=== PATIENT | female | born 1940 | race American Indian/Alaskan Native ===

== ENCOUNTER 2017-05-22 15:54 | Inpatient (IN) | payer MEDICARE ==
[2017-05-22] MEDS ORDERED: NITROSTAT SL PRN (17:33)
[2017-05-22] MEDS ORDERED: REGLAN IV ONE (17:33)
[2017-05-22] MEDS ORDERED: TYLENOL PO ONE (17:33)
--- NOTE | 2017-05-22 17:33 | Emergency Department Report ---
ED General Adult HPI - General Chief complaint: High BP Stated complaint: HIGH BLOOD PRESSURE Time Seen by Provider: 05/22/17 17:25 Source: patient, EMS (EMS written documentation is reviewed and appreciated), RN notes reviewed, old records reviewed Mode of arrival: Ambulatory Limitations: No Limitations - History of Present Illness Initial comments: This is a 76-year-old female. The patient is previously known to this provider. Past medical history includes subarachnoid hemorrhage, hypertension, diabetes The patient is sent to the ER by her local primary care doctor for evaluation of hypertension and chest pain. Patient complains of central chest pain which does not radiate to the back, arms and neck since 2:00 this afternoon. It is associated with cough, but no vomiting, diaphoresis or shortness of breath. There is no leg pain, there is no leg swelling, there are no DVT or pulmonary embolus risk factors. Patient also describes a headache which is frontal, bitemporal and present for a week. The headache is not sudden or thunderclap in nature, it did not respond intensity within the hour, there is no jaw claudication there is no change in vision, and there is no temporal pain. There is no neck pain, there is no neck stiffness. -: Gradual Location: head, chest Radiation: non-radiation Quality: aching Consistency: intermittent Improves with: none Worsens with: none Associated Symptoms: chest pain, cough, headaches. denies: confusion, diaphoresis, fever/chills, loss of appetite, malaise, nausea/vomiting, rash, seizure, shortness of breath, syncope, weakness - Related Data Home Medications Medication Instructions Recorded Confirmed Last Taken Folic Acid [Folvite] 1 mg PO QDAY 05/08/15 05/08/15 05/08/15 08:25 1mg Lisinopril [Zestril TAB] 10 mg PO QDAY 05/08/15 05/08/15 05/08/15 08:25 10mg Thiamine [Vitamin B-1] 100 mg PO QDAY 05/08/15 05/08/15 05/08/15 08:25 100mg levETIRAcetam [Keppra TAB] 1,000 mg PO BID 05/08/15 05/08/15 05/08/15 08:25 1000mg Allergies Allergy/AdvReac Type Severity Reaction Status Date / Time celecoxib [From Celebrex] Allergy welts Verified 05/08/15 20:34 Penicillins Allergy welts Verified 05/08/15 20:34 ED Review of Systems ROS: Stated complaint: HIGH BLOOD PRESSURE Other details as noted in HPI Comment: All other systems reviewed and negative ED Past Medical Hx - Past Medical History Previous Medical History?: Yes Hx Hypertension: Yes Hx Congestive Heart Failure: No Hx Liver Disease: No Hx Seizures: Yes Hx Kidney Stones: No Hx COPD: No - Surgical History Past Surgical History?: Yes Hx Pacemaker: No - Social History Smoking Status: Never Smoker - Medications Home Medications: Home Medications Medication Instructions Recorded Confirmed Last Taken Type Folic Acid [Folvite] 1 mg PO QDAY 05/08/15 05/08/15 05/08/15 08:25 History 1mg Lisinopril [Zestril TAB] 10 mg PO QDAY 05/08/15 05/08/15 05/08/15 08:25 History 10mg Thiamine [Vitamin B-1] 100 mg PO QDAY 05/08/15 05/08/15 05/08/15 08:25 History 100mg levETIRAcetam [Keppra TAB] 1,000 mg PO BID 05/08/15 05/08/15 05/08/15 08:25 History 1000mg ED Physical Exam - General Limitations: No Limitations General appearance: alert, in no apparent distress - Head Head exam: Present: atraumatic, normocephalic - Eye Eye exam: Present: normal appearance (there is no temporal tenderness), PERRL, EOMI, other (visual acuity intact to finger counting, color perception, reading at a close distance). Absent: nystagmus - ENT ENT exam: Present: normal exam, normal orophraynx, mucous membranes moist, normal external ear exam - Neck Neck exam: Present: normal inspection, full ROM - Respiratory Respiratory exam: Present: normal lung sounds bilaterally. Absent: respiratory distress, chest wall tenderness - Cardiovascular Cardiovascular Exam: Present: regular rate, normal rhythm, normal heart sounds. Absent: bradycardia, tachycardia, irregular rhythm, systolic murmur, diastolic murmur, rubs, gallop - GI/Abdominal GI/Abdominal exam: Present: soft, normal bowel sounds. Absent: distended, tenderness, guarding, rebound, rigid, pulsatile mass - Extremities Exam Extremities exam: Present: normal inspection, full ROM, normal capillary refill. Absent: joint swelling, calf tenderness - Back Exam Back exam: Present: normal inspection, full ROM. Absent: paraspinal tenderness , vertebral tenderness - Neurological Exam Neurological exam: Present: alert, oriented X3, CN II-XII intact, normal gait, other (Extraocular movements intact. Tongue midline. No facial droop. Facial sensation intact to light touch in the V1, V2, V3 distribution bilaterally. 5 and 5 strength in 4 extremities.. Sensation is intact to light touch in 4 extremities.). Absent: motor sensory deficit - Psychiatric Psychiatric exam: Present: anxious - Skin Skin exam: Present: warm, dry, intact, normal color. Absent: rash ED Course Vital Signs 05/22/17 05/22/17 05/22/17 17:08 19:23 20:35 Temperature 98.2 F Pulse Rate 61 72 Respiratory 16 16 Rate Blood Pressure 185/78 173/85 O2 Sat by Pulse 100 100 Oximetry - Reevaluation(s) Reevaluation #1: 05/22/17 22:13 CAT scan of the chest is negative for acute disease including dissection and/or pulmonary embolus. Noncontrast CT scan of the brain is negative. Dr. Mo accepts the patient to the medical service for chest pain and elevated blood pressure. ED Medical Decision Making - Lab Data Result diagrams: 05/22/17 17:40 05/22/17 17:40 Vital Signs 05/22/17 17:08 Temperature 98.2 F Pulse Rate 61 Respiratory 16 Rate Blood Pressure 185/78 O2 Sat by Pulse 100 Oximetry Labs 05/22/17 05/22/17 05/22/17 17:40 17:40 17:40 WBC 5.0 RBC 4.19 Hgb 12.1 Hct 37.2 MCV 89 MCH 29 MCHC 33 RDW 15.3 H Plt Count 299 Lymph % (Auto) 44.8 H [place] % (Auto) 9.8 H Eos % (Auto) 1.4 Baso % (Auto) 1.8 Lymph # 2.2 [place] # 0.5 Eos # 0.1 Baso # 0.1 Seg Neutrophils % 42.2 Seg Neutrophils # 2.1 PT 13.0 INR 0.94 APTT 25.9 Thrombin Time 17.0 Sodium 140 Potassium 4.1 Chloride 102.1 Carbon Dioxide 26 Anion Gap 16 BUN 13 Creatinine 0.9 Estimated GFR > 60 BUN/Creatinine Ratio 14 Glucose 93 Calcium 8.9 Total Bilirubin 0.20 AST 11 ALT 6 L Alkaline Phosphatase 59 Total Creatine Kinase 62 CK-MB (CK-2) 1.5 CK-MB (CK-2) Rel Index 2.4 Troponin T < 0.010 Total Protein 6.7 Albumin 3.8 L Albumin/Globulin Ratio 1.3 - EKG Data -: EKG Interpreted by Me - EKG Data 05/22/17 18:54 Compared to EKG from earlier today Sinus bradycardia, 59 bpm, left ventricular hypertrophy, not consistent with ST elevation myocardial infarction, appears unchanged compared to prior EKG from earlier on today. - Radiology Data Radiology results: pending, image reviewed interpreted by me: X-ray of the chest, interpreted by me: No acute disease - Medical Decision Making Differential diagnosis, including but not limited to: Migraine headache, tension headache, cluster headache, pneumonia, GERD, gastritis, acute coronary syndrome, anxiety, hypertension, elevated blood pressure, intracranial hemorrhage Assessment and plan: 76-year-old female with 2 complaints. Headache has been present for one week, history of edema consistent with subarachnoid hemorrhage or temporal arteritis. Has a GCS of 15, NIH score of 0 , no temporal tenderness, no jaw claudication, has a normal neurologic examination. Highly doubt Significant pathology, but will obtain a noncontrast CT scan of the brain. In terms of the patient's chest pain, it is atypical with no pulmonary embolus or DVT risk factors, patient low risk by well's criteria. However given her advanced age, nonspecific EKG, vascular risk factors, patient moderate risk by heart score, and also has had no recent acute coronary syndrome or stratification, and will benefit from admission for acs risk stratification . The patient has no pulse deficits, she has equal pulses in the bilateral upper and lower extremities, therefore think aortic disease is very unlikely. Critical care attestation.: If time is entered above; I have spent that time in minutes in the direct care of this critically ill patient, excluding procedure time. ED Disposition Clinical Impression: HTN (hypertension), Chest pain Disposition: OP ADMIT IP TO THIS HOSP Is pt being admited?: Yes Does the pt Need Aspirin: Yes Condition: Stable Instructions: Hypertension (ED), Chest Pain (ED) Referrals: PRIMARY CARE, [Primary Care Provider] - 3-5 Days
[2017-05-22 17:59] LABS: Basophils # (Auto) 0.1 K/mm3 (0.0-0.1); Basophils % (Auto) 1.8 % (0.0-1.8); Eosinophils # (Auto) 0.1 K/mm3 (0.0-0.4); Eosinophils % (Auto) 1.4 % (0.0-4.3); Hematocrit 37.2 % (30.3-42.9); Hemoglobin 12.1 gm/dl (10.1-14.3); Lymphocytes # (Auto) 2.2 K/mm3 (1.2-5.4); Lymphocytes % (Auto) 44.8 % (13.4-35.0); Mean Corpuscular HGB Conc 33 % (30-34); Mean Corpuscular Hemoglobin 29 pg (28-32); Mean Corpuscular Volume 89 fl (79-97); Monocytes # (Auto) 0.5 K/mm3 (0.0-0.8); Monocytes % (Auto) 9.8 % (0.0-7.3); Platelet Count 299 K/mm3 (140-440); Red Blood Count 4.19 M/mm3 (3.65-5.03); Red Cell Distribution Width 15.3 % (13.2-15.2)
[2017-05-22 18:10] LABS: INR 0.94 (0.87-1.13); Partial Thromboplastin Time 25.9 Sec. (24.2-36.6)
[2017-05-22 18:22] LABS: Creatine Kinase MB 1.5 ng/mL (0.0-4.0)
[2017-05-22 18:23] LABS: Alanine Aminotransferase 6 units/L (7-56); Albumin 3.8 g/dL (3.9-5); BUN/Creatinine Ratio 14; Blood Urea Nitrogen 13 mg/dL (7-17); Calcium 8.9 mg/dL (8.4-10.2); Hemolysis Index 18
[2017-05-22] MEDS ORDERED: APRESOLINE IV STA (18:30)
[2017-05-22] MEDS ORDERED: NACL 0.9% 250ML 250 ML IV ONE (18:37)
--- NOTE | 2017-05-22 19:06 | XRay Report ---
FINAL REPORT PROCEDURE: XRAY CHEST SINGLE VIEW TECHNIQUE: A portable AP chest radiograph was obtained at 05/22/2017 22:15 (T) . CPT 78943 HISTORY: Shortness of breath. COMPARISON: No prior studies are available for comparison. FINDINGS: Heart: Mild cardiomegaly. Mediastinum/Vessels: Aortic tortuosity. Lungs/Pleural space: Subtle left lower lobe opacity. Possible tiny left pleural effusion. Bony thorax: Mild osteopenia. Mild narrowing and small osteophytes of the bilateral shoulders. Mild degenerative change of the visualized spine. Life support devices: None. IMPRESSION: Mild cardiomegaly. Aortic tortuosity. Subtle left lower lobe opacity, likely atelectasis, cannot exclude pneumonia. Possible tiny left pleural effusion.
--- NOTE | 2017-05-22 20:42 | Cat Scan Report ---
FINAL REPORT EXAM: CT ANGIO CHEST HISTORY: cp htn TECHNIQUE:: CTA of chest with IV contrast. Coronal and sagittal and MIP reconstructed images provided. PRIORS: None currently available. FINDINGS: Mild scarring or discoid subsegmental at the lung bases. No pneumothorax. No distinct consolidation. No effusion. Mild scarring of both lung bases. Main pulmonary arteries are unremarkable. No pulmonary embolus No aortic aneurysm. No dissection. Mild aortic atherosclerotic disease. Major branch arteries are patent and intact. Moderate to marked cardiomegaly. Coronary artery disease. Small pericardial effusion. In the right paratracheal region on series 2:29 there is a well-defined low-attenuation lesion measuring 3.3 x 2.7 x 2.8 cm which may represent a cystic lesion. No internal complexity. No wall thickening. No abnormal enhancement. No internal septation. Superior vena cava is patent. No significant mass effect on the SVC identified. There is slight displacement of the azygos vein. Esophagus is suggests medial to this lesion on series 2:32. Direct connection is not evident. Diverticulum is not excluded. Remainder of the soft is unremarkable. Images of the thyroid are unremarkable. Axillary regions are unremarkable. No mediastinal adenopathy. No hilar adenopathy. No hilar mass. No suspicious osseous lesions on this limited examination of the skeleton. Metastatic disease better evaluated with bone scan. Degenerative changes are present in the spine. IMPRESSION: Cardiomegaly. Small pericardial effusion. Well-defined low-attenuation lesion in the right paratracheal region. Attenuation suggests pericardial cyst, mediastinal cyst, lymphocele, or possible esophageal diverticulum.
[2017-05-22 22:39] LABS: Bacteria,Urine 1+ /HPF (Negative); Bilirubin,Urine NEG (Negative); Blood,Urine NEG (Negative); Color,Urine Yellow (Yellow); Mucus,Urine FEW /HPF; Protein,Urine <15 mg/dL mg/dL (Negative); Urobilinogen,Urine < 2.0 mg/dL (<2.0)
[2017-05-22] MEDS ORDERED: TYLENOL PO PRN (23:19)
[2017-05-22] MEDS ORDERED: SODIUM CHLORIDE FLUSH SYRINGE 10 ML IV PRN (23:19)
[2017-05-22] MEDS ORDERED: ZOFRAN IV PRN (23:19)
[2017-05-22] MEDS ORDERED: APRESOLINE IV PRN (23:19)
--- NOTE | 2017-05-22 23:22 | History and Physical Report ---
History of Present Illness Date of examination: 05/22/17 History of present illness: 76-year-old woman with hypertension, diabetes, history of subarachnoid hemorrhage, seizure comes emergency room with complaints of chest pain located in the epigastric area which she describes as, dull pain, intermittent every 10 minutes, no radiation intensity 5/10, can't identify exacerbating or relieving factors. Denies shortness of breath, nausea vomiting, diaphoresis or palpitation. Patient stated that she took her blood pressure was very elevated at her primary care physician's office who sent her to the emergency room for evaluation Review Of Systems: Constitutional: no weight loss Ears, eyes, nose, mouth and throat: no nasal congestion, no nasal discharge, no sinus pressure, blurry vision, diplopia Neck: No neck pain or rigidity. Cardiovascular: no orthopnea, palpitations Respiratory: NO cough Gastrointestinal: no abdominal pain, hematochezia Genitourinary : no dysuria, frequency , hematuria Musculoskeletal: no muscle ache Integumentary: no rash, no pruritis Neurological: no parathesias, focal weakness Endocrine: no cold or heat intolerance, no polyuria or polydipsia Hematologic/Lymphatic: no easy bruising, no easy bleeding, no gland swelling Allergic/Immunologic: no urticaria, no angioedema. PAST MEDICAL HISTORY: None PAST SURGICAL HISTORY: None SOCIAL HISTORY: Denies alcohol, tobacco, drugs FAMILY HISTORY: Hypertension Medications and Allergies Allergies Allergy/AdvReac Type Severity Reaction Status Date / Time celecoxib [From Celebrex] Allergy welts Verified 05/08/15 20:34 Penicillins Allergy welts Verified 05/08/15 20:34 Home Medications Medication Instructions Recorded Confirmed Last Taken Type Lisinopril [Zestril TAB] 20 mg PO QDAY 05/08/15 05/22/17 05/22/17 11:00 History Aspirin [Aspirin EC] 81 mg PO DAILY 05/22/17 05/22/17 Unknown History Active Meds: Active Medications Hydralazine HCl (Apresoline) 5 mg IV Q6HR PRN PRN Reason: Hypertension Nitroglycerin (Nitrostat) 0.4 mg SL .Q5MIN PRN PRN Reason: Chest Pain Exam - Physical Exam Narrative exam: Gen. appearance: Patient lying in bed, no apparent distress HEENT: Normocephalic, atraumatic, pupils equally round and reactive to light, extraocular movement intact, and no sclericterus,. No JVD or thyromegaly or nodule,neck supple, no carotid bruit ,mucous membranes moist, no exudate or erythema Heart: S1, S2, regular rate and rhythm Lungs: Clear to auscultation bilaterally, breathing comfortable Abdomen: Positive bowel sounds, nontender, nondistended, no organomegaly Extremity: No edema, cyanosis, clubbing Skin: No rash, nodules, warm, dry Neuro: Oriented 3, cranial nerves II-12 intact, speech is fluent, motor and sensory intact - Constitutional Vitals: Temp Pulse Resp BP Pulse Ox 98.2 F 72 16 173/85 100 05/22/17 17:08 05/22/17 20:35 05/22/17 19:23 05/22/17 20:35 05/22/17 19:23 Results - Labs CBC & Chem 7: 05/22/17 17:40 05/22/17 17:40 Labs: Abnormal lab results 05/22/17 05/22/17 05/22/17 Range/Units 17:40 17:40 22:14 RDW 15.3 H (13.2-15.2) % Lymph % (Auto) 44.8 H (13.4-35.0) % [place] % (Auto) 9.8 H (0.0-7.3) % ALT 6 L (7-56) units/L Albumin 3.8 L (3.9-5) g/dL Ur Specific [place] 1.050 H (1.003-1.030) Urine WBC (Auto) 12.0 H (0.0-6.0) /HPF - Imaging and Cardiology EKG: image reviewed Chest x-ray: image reviewed CT scan - chest: report reviewed Assessment and Plan Hypertensive urgency Chest pain Diabetes type 2 History of subarachnoid hemorrhage Seizure Plan Admit to medicine Start IV hydralazine, check cardiac enzymes, stress test Continue Procrit outpatient medications DVT prophylaxis
[2017-05-23 00:37] LABS: Creatine Kinase MB 1.4 ng/mL (0.0-4.0)
[2017-05-23] MEDS ORDERED: BABY ASPIRIN ONE (01:04)
[2017-05-23] MEDS: BABY ASPIRIN PO ONE ×2 (01:10→01:31)
[2017-05-23 06:21] LABS: Basophils # (Auto) 0.1 K/mm3 (0.0-0.1); Basophils % (Auto) 1.2 % (0.0-1.8); Eosinophils # (Auto) 0.1 K/mm3 (0.0-0.4); Eosinophils % (Auto) 2.1 % (0.0-4.3); Hematocrit 34.6 % (30.3-42.9); Lymphocytes # (Auto) 1.8 K/mm3 (1.2-5.4); Lymphocytes % (Auto) 39.9 % (13.4-35.0); Mean Corpuscular HGB Conc 32 % (30-34); Mean Corpuscular Hemoglobin 29 pg (28-32); Mean Corpuscular Volume 90 fl (79-97); Monocytes # (Auto) 0.4 K/mm3 (0.0-0.8); Monocytes % (Auto) 9.4 % (0.0-7.3); Platelet Count 311 K/mm3 (140-440); Red Blood Count 3.86 M/mm3 (3.65-5.03); Red Cell Distribution Width 14.8 % (13.2-15.2)
[2017-05-23 06:47] LABS: BUN/Creatinine Ratio 17; Blood Urea Nitrogen 12 mg/dL (7-17); Calcium 8.5 mg/dL (8.4-10.2); Creatine Kinase MB 1.3 ng/mL (0.0-4.0); Hemolysis Index 3
--- NOTE | 2017-05-23 07:26 | Cat Scan Report ---
FINAL REPORT PROCEDURE: CT HEAD WO CONTRAST TECHNIQUE: Computerized tomography of the head was performed without contrast material. HISTORY: headache COMPARISON: No prior studies are available for comparison. FINDINGS: There is a chronic appearing right basal ganglia lacunar infarct. No CT evidence of intracranial mass, hemorrhage, acute territorial infarction, or hydrocephalus. There is bilateral white matter low attenuation, compatible with chronic microvascular ischemic change. Calvarium is intact. Visualized paranasal sinuses and mastoids are aerated. IMPRESSION: No CT evidence of acute intracranial abnormality Chronic ischemic changes.
[2017-05-23] MEDS ORDERED: LEXISCAN IV ONE ×2 (08:54→08:56)
--- NOTE | 2017-05-23 09:05 | Progress Note ---
<ALMA CROWLEY - Last Filed: 05/23/17 14:27> Assessment and Plan Assessment and plan: 76-year-old woman admitted to hospitalist service with complaints of chest pain located in the epigastric area. Chest pain Cardiac enzymes have been negative, Stress test negative for ischemia Hypertensive urgency Urgency now resolved, continue current antihypertensives Hypertension Continue antihypertensives Lesion in the right paratracheal region Pulmonology consulted Diabetes type 2 ADA diet, Accu-Cheks before meals and at bedtime, sliding scale insulin, A1c History of subarachnoid hemorrhage History of Seizure Not currently on any outpatient antiseizure medication DVT prophylaxis SCDs History Interval history: Patient seen and examined. No new issues overnight. She denied chest pain, shortness of breath, nausea vomiting at this time. Labs and nursing notes reviewed. Hospitalist Physical - Constitutional Vitals: Temp Pulse Resp BP Pulse Ox 98.6 F 62 17 165/67 99 05/23/17 07:25 05/23/17 07:25 05/23/17 07:25 05/23/17 07:25 05/23/17 07:25 General appearance: Present: no acute distress, well-nourished - EENT Eyes: Present: PERRL, EOM intact ENT: hearing intact, clear oral mucosa - Neck Neck: Present: supple, normal ROM - Respiratory Respiratory effort: normal Respiratory: bilateral: CTA - Cardiovascular Rhythm: regular Heart Sounds: Present: S1 & S2 - Extremities Extremities: no ischemia, No edema - Abdominal General gastrointestinal: soft, non-tender, non-distended - Integumentary Integumentary: Present: clear, warm, dry - Psychiatric Psychiatric: appropriate mood/affect, intact judgment & insight, cooperative - Neurologic Neurologic: CNII-XII intact, moves all extremities - Allied Health Allied health notes reviewed: nursing Results - Labs CBC & Chem 7: 05/23/17 04:23 05/23/17 04:23 Labs: Laboratory Last Values WBC 4.6 K/mm3 (4.5-11.0) 05/23/17 04:23 RBC 3.86 M/mm3 (3.65-5.03) 05/23/17 04:23 Hgb 11.0 gm/dl (10.1-14.3) 05/23/17 04:23 Hct 34.6 % (30.3-42.9) 05/23/17 04:23 MCV 90 fl (79-97) 05/23/17 04:23 MCH 29 pg (28-32) 05/23/17 04:23 MCHC 32 % (30-34) 05/23/17 04:23 RDW 14.8 % (13.2-15.2) 05/23/17 04:23 Plt Count 311 K/mm3 (140-440) 05/23/17 04:23 Lymph % (Auto) 39.9 % (13.4-35.0) H 05/23/17 04:23 [place] % (Auto) 9.4 % (0.0-7.3) H 05/23/17 04:23 Eos % (Auto) 2.1 % (0.0-4.3) 05/23/17 04:23 Baso % (Auto) 1.2 % (0.0-1.8) 05/23/17 04:23 Lymph # 1.8 K/mm3 (1.2-5.4) 05/23/17 04:23 [place] # 0.4 K/mm3 (0.0-0.8) 05/23/17 04:23 Eos # 0.1 K/mm3 (0.0-0.4) 05/23/17 04:23 Baso # 0.1 K/mm3 (0.0-0.1) 05/23/17 04:23 Seg Neutrophils % 47.4 % (40.0-70.0) 05/23/17 04:23 Seg Neutrophils # 2.2 K/mm3 (1.8-7.7) 05/23/17 04:23 PT 13.0 Sec. (12.2-14.9) 05/22/17 17:40 INR 0.94 (0.87-1.13) 05/22/17 17:40 APTT 25.9 Sec. (24.2-36.6) 05/22/17 17:40 Thrombin Time 17.0 Sec. (15.1-19.6) 05/22/17 17:40 Sodium 141 mmol/L (137-145) 05/23/17 04:23 Potassium 3.6 mmol/L (3.6-5.0) 05/23/17 04:23 Chloride 102.5 mmol/L (98-107) 05/23/17 04:23 Carbon Dioxide 25 mmol/L (22-30) 05/23/17 04:23 Anion Gap 17 mmol/L 05/23/17 04:23 BUN 12 mg/dL (7-17) 05/23/17 04:23 Creatinine 0.7 mg/dL (0.7-1.2) 05/23/17 04:23 Estimated GFR > 60 ml/min 05/23/17 04:23 BUN/Creatinine Ratio 17 % 05/23/17 04:23 Glucose 79 mg/dL (65-100) 05/23/17 04:23 Calcium 8.5 mg/dL (8.4-10.2) 05/23/17 04:23 Total Bilirubin 0.20 mg/dL (0.1-1.2) 05/22/17 17:40 AST 11 units/L (5-40) 05/22/17 17:40 ALT 6 units/L (7-56) L 05/22/17 17:40 Alkaline Phosphatase 59 units/L (35-129) 05/22/17 17:40 Total Creatine Kinase 52 units/L (30-135) 05/23/17 04:23 CK-MB (CK-2) 1.3 ng/mL (0.0-4.0) 05/23/17 04:23 CK-MB (CK-2) Rel Index 2.5 (0-4) 05/23/17 04:23 Troponin T < 0.010 ng/mL (0.00-0.029) 05/23/17 04:23 Total Protein 6.7 g/dL (6.3-8.2) 05/22/17 17:40 Albumin 3.8 g/dL (3.9-5) L 05/22/17 17:40 Albumin/Globulin Ratio 1.3 % 05/22/17 17:40 Urine Color Yellow (Yellow) 05/22/17 22:14 Urine Turbidity Clear (Clear) 05/22/17 22:14 Urine pH 6.0 (5.0-7.0) 05/22/17 22:14 Ur Specific [place] 1.050 (1.003-1.030) H 05/22/17 22:14 Urine Protein <15 mg/dl mg/dL (Negative) 05/22/17 22:14 Urine Glucose (UA) Neg mg/dL (Negative) 05/22/17 22:14 Urine Ketones Neg mg/dL (Negative) 05/22/17 22:14 Urine Blood Neg (Negative) 05/22/17 22:14 Urine Nitrite Neg (Negative) 05/22/17 22:14 Urine Bilirubin Neg (Negative) 05/22/17 22:14 Urine Urobilinogen < 2.0 mg/dL (<2.0) 05/22/17 22:14 Ur Leukocyte Esterase Mod (Negative) 05/22/17 22:14 Urine WBC (Auto) 12.0 /HPF (0.0-6.0) H 05/22/17 22:14 Urine RBC (Auto) 5.0 /HPF (0.0-6.0) 05/22/17 22:14 U Epithel Cells (Auto) 5.0 /HPF (0-13.0) 05/22/17 22:14 Urine Bacteria (Auto) 1+ /HPF (Negative) 05/22/17 22:14 Urine Mucus Few /HPF 05/22/17 22:14 <BAIRON OGDEN - Last Filed: 05/23/17 16:47> Assessment and Plan Assessment and plan: I saw and evaluated the patient. I agree with the findings and the plan of care as documented in the Nurse Practitioner's~note, with the following corrections and additions. Patient presents with chest pain, stress test negative. CT shows right paratracheal lesion. Pulmonology consulted. Hospitalist Physical - Constitutional Vitals: Temp Pulse Resp BP Pulse Ox 98.6 F 84 17 132/64 98 05/23/17 12:28 05/23/17 12:28 05/23/17 12:28 05/23/17 12:28 05/23/17 13:22 Results - Labs CBC & Chem 7: 05/23/17 04:23 05/23/17 04:23 Labs: Laboratory Last Values WBC 4.6 K/mm3 (4.5-11.0) 05/23/17 04:23 RBC 3.86 M/mm3 (3.65-5.03) 05/23/17 04:23 Hgb 11.0 gm/dl (10.1-14.3) 05/23/17 04:23 Hct 34.6 % (30.3-42.9) 05/23/17 04:23 MCV 90 fl (79-97) 05/23/17 04:23 MCH 29 pg (28-32) 05/23/17 04:23 MCHC 32 % (30-34) 05/23/17 04:23 RDW 14.8 % (13.2-15.2) 05/23/17 04:23 Plt Count 311 K/mm3 (140-440) 05/23/17 04:23 Lymph % (Auto) 39.9 % (13.4-35.0) H 05/23/17 04:23 [place] % (Auto) 9.4 % (0.0-7.3) H 05/23/17 04:23 Eos % (Auto) 2.1 % (0.0-4.3) 05/23/17 04:23 Baso % (Auto) 1.2 % (0.0-1.8) 05/23/17 04:23 Lymph # 1.8 K/mm3 (1.2-5.4) 05/23/17 04:23 [place] # 0.4 K/mm3 (0.0-0.8) 05/23/17 04:23 Eos # 0.1 K/mm3 (0.0-0.4) 05/23/17 04:23 Baso # 0.1 K/mm3 (0.0-0.1) 05/23/17 04:23 Seg Neutrophils % 47.4 % (40.0-70.0) 05/23/17 04:23 Seg Neutrophils # 2.2 K/mm3 (1.8-7.7) 05/23/17 04:23 PT 13.0 Sec. (12.2-14.9) 05/22/17 17:40 INR 0.94 (0.87-1.13) 05/22/17 17:40 APTT 25.9 Sec. (24.2-36.6) 05/22/17 17:40 Thrombin Time 17.0 Sec. (15.1-19.6) 05/22/17 17:40 Sodium 141 mmol/L (137-145) 05/23/17 04:23 Potassium 3.6 mmol/L (3.6-5.0) 05/23/17 04:23 Chloride 102.5 mmol/L (98-107) 05/23/17 04:23 Carbon Dioxide 25 mmol/L (22-30) 05/23/17 04:23 Anion Gap 17 mmol/L 05/23/17 04:23 BUN 12 mg/dL (7-17) 05/23/17 04:23 Creatinine 0.7 mg/dL (0.7-1.2) 05/23/17 04:23 Estimated GFR > 60 ml/min 05/23/17 04:23 BUN/Creatinine Ratio 17 % 05/23/17 04:23 Glucose 79 mg/dL (65-100) 05/23/17 04:23 Hemoglobin A1c 6.6 % (4-6) H 05/23/17 04:29 Calcium 8.5 mg/dL (8.4-10.2) 05/23/17 04:23 Total Bilirubin 0.20 mg/dL (0.1-1.2) 05/22/17 17:40 AST 11 units/L (5-40) 05/22/17 17:40 ALT 6 units/L (7-56) L 05/22/17 17:40 Alkaline Phosphatase 59 units/L (35-129) 05/22/17 17:40 Total Creatine Kinase 52 units/L (30-135) 05/23/17 04:23 CK-MB (CK-2) 1.3 ng/mL (0.0-4.0) 05/23/17 04:23 CK-MB (CK-2) Rel Index 2.5 (0-4) 05/23/17 04:23 Troponin T < 0.010 ng/mL (0.00-0.029) 05/23/17 04:23 Total Protein 6.7 g/dL (6.3-8.2) 05/22/17 17:40 Albumin 3.8 g/dL (3.9-5) L 05/22/17 17:40 Albumin/Globulin Ratio 1.3 % 05/22/17 17:40 Urine Color Yellow (Yellow) 05/22/17 22:14 Urine Turbidity Clear (Clear) 05/22/17 22:14 Urine pH 6.0 (5.0-7.0) 05/22/17 22:14 Ur Specific [place] 1.050 (1.003-1.030) H 05/22/17 22:14 Urine Protein <15 mg/dl mg/dL (Negative) 05/22/17 22:14 Urine Glucose (UA) Neg mg/dL (Negative) 05/22/17 22:14 Urine Ketones Neg mg/dL (Negative) 05/22/17 22:14 Urine Blood Neg (Negative) 05/22/17 22:14 Urine Nitrite Neg (Negative) 05/22/17 22:14 Urine Bilirubin Neg (Negative) 05/22/17 22:14 Urine Urobilinogen < 2.0 mg/dL (<2.0) 05/22/17 22:14 Ur Leukocyte Esterase Mod (Negative) 05/22/17 22:14 Urine WBC (Auto) 12.0 /HPF (0.0-6.0) H 05/22/17 22:14 Urine RBC (Auto) 5.0 /HPF (0.0-6.0) 05/22/17 22:14 U Epithel Cells (Auto) 5.0 /HPF (0-13.0) 05/22/17 22:14 Urine Bacteria (Auto) 1+ /HPF (Negative) 05/22/17 22:14 Urine Mucus Few /HPF 05/22/17 22:14
[2017-05-23] MEDS: SODIUM CHLORIDE FLUSH SYRINGE 10 ML IV SCH ×2 (11:44→22:30)
[2017-05-23] MEDS: HALFPRIN EC PO SCH (11:45)
[2017-05-23] MEDS: ZESTRIL PO SCH (11:45)
--- NOTE | 2017-05-23 14:30 | Treadmill Report ---
NUCLEAR CARDIAC IMAGING INDICATION FOR PROCEDURE: Chest pain. Informed consent was obtained. DESCRIPTION OF PROCEDURE: Vasodilator stress was achieved with administration of 0.4 mg of intravenous Lexiscan per protocol. Rest and stress nuclear cardiac imaging was performed following the intravenous administration of technetium 99m Myoview per protocol. Gated SPECT imaging demonstrates a post-stress left ventricular ejection fraction of 54% with normal wall motion. Myocardial perfusion imaging demonstrates no significant cavity change between stress and rest. The distribution of the isotope throughout the left ventricle is homogeneous and normal between stress and rest acquisition. Nuclear cardiac imaging demonstrates grossly normal post-stress left ventricular systolic function with no significant evidence for myocardial ischemia or necrosis. JOB# [id number] CAN/ROSARIO
[2017-05-23] MEDS ORDERED: LEVAQUIN 500MG/100ML 500 MG/100 ML BAG IV SCH (17:00)
--- NOTE | 2017-05-24 09:14 | Consultation ---
History of Present Illness Consult date: 05/24/17 Requesting physician: BIARON OGDEN Reason for consult: abnormal CXR/CT History of present illness: 76 y/o female, former smoker of 20+ years but quit 30 years ago admitted with hypertensive Urgency. Patient had chest pain in ED so CTA was done which was negative for PE. Unfortunately, a right paratracheal mass was found and pulmonary was consulted. Patient states that she has lost about 19lbs over the past year unintentionally. She denies any fevers, night sweats or hemoptysis. No dyspnea. She has never had cancer. She had one uncle with cancer but does not know the type. She still has her thyroid. Remainder of the review is negative. Past History Past Medical History: hypertension, other (subarrachnoid hemorrhage) Past Surgical History: Other Social history: no significant social history Family history: no significant family history Medications and Allergies Allergies Allergy/AdvReac Type Severity Reaction Status Date / Time celecoxib [From Celebrex] Allergy welts Verified 05/08/15 20:34 Penicillins Allergy welts Verified 05/08/15 20:34 Home Medications Medication Instructions Recorded Confirmed Last Taken Type Lisinopril [Zestril TAB] 20 mg PO QDAY 05/08/15 05/22/17 05/22/17 11:00 History Aspirin [Aspirin EC] 81 mg PO DAILY 05/22/17 05/22/17 Unknown History Active Meds: Active Medications Acetaminophen (Tylenol) 650 mg PO Q4H PRN PRN Reason: Pain MILD(1-3)/Fever >100.5/RANGEL Aspirin (Halfprin Ec) 81 mg PO DAILY COUNTS INCLUDE 234 BEDS AT THE [facility] Last Admin: 05/23/17 11:45 Dose: 81 mg Hydralazine HCl (Apresoline) 5 mg IV Q6H PRN PRN Reason: Hypertension Levofloxacin/Dextrose (Levaquin 500mg/100ml) 500 mg in 100 mls @ 100 mls/hr IV Q24H COUNTS INCLUDE 234 BEDS AT THE [facility]; Protocol Last Admin: 05/23/17 17:46 Dose: 100 mls/hr Lisinopril (Zestril) 20 mg PO QDAY COUNTS INCLUDE 234 BEDS AT THE [facility] Last Admin: 05/23/17 11:45 Dose: 20 mg Nitroglycerin (Nitrostat) 0.4 mg SL .Q5MIN PRN PRN Reason: Chest Pain Last Admin: 05/23/17 03:08 Dose: 0.4 mg Ondansetron HCl (Zofran) 4 mg IV Q8H PRN PRN Reason: Nausea And Vomiting Sodium Chloride (Sodium Chloride Flush Syringe 10 Ml) 10 ml IV BID JAVIER Last Admin: 05/23/17 22:30 Dose: 10 ml Sodium Chloride (Sodium Chloride Flush Syringe 10 Ml) 10 ml IV PRN PRN PRN Reason: LINE FLUSH Review of Systems All systems: negative Physical Examination Vital signs: Vital Signs Temp Pulse Resp BP Pulse Ox 98.2 F 61 16 185/78 100 05/22/17 17:08 05/22/17 17:08 05/22/17 17:08 05/22/17 17:08 05/22/17 17:08 General appearance: no acute distress, alert Eyes: non-icteric ENT: oropharynx moist Neck: supple, no lymphadenopathy Effort: normal Ascultation: Bilateral: clear Percussion: Bilateral: not dull Tactile fremitus: Bilateral: normal Cardiovascular: regular rate and rhythm Gastrointestinal: normoactive bowel sounds, soft Integumentary: normal Extremities: no cyanosis, no edema, pink and warm, pulses normal normal mental status, non-focal exam mood appropriate Results - Laboratory Findings CBC and BMP: 05/23/17 04:23 05/23/17 04:23 PT/INR, D-dimer PT 13.0 Sec. (12.2-14.9) 05/22/17 17:40 INR 0.94 (0.87-1.13) 05/22/17 17:40 Abnormal lab findings: Abnormal Labs 05/22/17 05/22/17 05/22/17 17:40 17:40 22:14 RDW 15.3 H Lymph % (Auto) 44.8 H [place] % (Auto) 9.8 H POC Glucose Hemoglobin A1c ALT 6 L Albumin 3.8 L Ur Specific [place] 1.050 H Urine WBC (Auto) 12.0 H 05/23/17 05/23/17 05/23/17 04:23 04:29 17:36 RDW Lymph % (Auto) 39.9 H [place] % (Auto) 9.4 H POC Glucose 148 H Hemoglobin A1c 6.6 H ALT Albumin Ur Specific [place] Urine WBC (Auto) - Diagnostic Findings CT scan - chest: image reviewed Assessment and Plan 76 y/o female with hypertensive urgency found to have right paratracheal lesion. Agree with radiology differential. Her age is the biggest risk factor for malignancy. No real B symptoms associated with potential malignancy. Long discussion at bedside and we have developed a plan. 1. Follow up with Dr. Nolasco as an outpatient, will arrange. 2. Please have patient sign release form to have all imaging of chest and neck faxed to our office or to this hospital for review 3. If lesion was not present 2 years ago on [facility] imaging or no imaging available, then need to consider PET scan vs going straight to biopsy 4. No objection to discharge from pulmonary standpoint today.
[2017-05-24] MEDS: ZESTRIL PO SCH (10:09)
[2017-05-24] MEDS: HALFPRIN EC PO SCH (10:09)
[2017-05-24] MEDS: SODIUM CHLORIDE FLUSH SYRINGE 10 ML IV SCH (10:09)
[2017-05-24 10:30] VITALS: BP 123/63
--- NOTE | 2017-05-24 12:02 | Discharge Summary ---
Providers - Providers Date of Admission: 05/22/17 23:19 Date of discharge: 05/24/17 Attending physician: BAIRON OGDEN 05/23/17 14:11 Consult to Physician [CONS] Routine Comment: Consulting Provider: HEDY NOLASCO Physician Instructions: Reason For Exam: lesion in the right paratracheal Primary care physician: BAIRON KIM Hospitalization Condition: Stable Pertinent studies: CTA chest reveal Cardiomegaly. Small pericardial effusion. Well-defined low-attenuation lesion in the right paratracheal region. Attenuation suggests pericardial cyst, mediastinal cyst, lymphocele, or possible esophageal diverticulum. Stress test revealed no evidence of ischemia Chest x-ray revealed Subtle left lower lobe opacity, likely atelectasis, cannot exclude pneumonia. Possible tiny left pleural effusion. Hospital course: 76-year-old woman admitted to hospitalist service with complaints of chest pain located in the epigastric area. Chest pain Cardiac enzymes have been negative, Stress test negative for ischemia, etiology likely GERD, Pepcid prescribed on dc Hypertensive urgency Urgency now resolved, continue Lisinopril Hypertension BP controlled on Lisinopril 20mg Lesion in the right paratracheal region Pulmonology consulted, patient will follow up as outpatient with Dr Nolasco within 2 weeks Diabetes type 2 ADA diet, Accu-Cheks before meals and at bedtime, A1c 6.6 patient to follow up with PCP for management, counselled on diet and lifestyle modification UTI Continue Levaquin History of subarachnoid hemorrhage History of Seizure Not currently on any outpatient antiseizure medication DVT prophylaxis SCDs Disposition: DC-01 TO HOME OR SELFCARE Time spent for discharge: 32 minutes Core Measure Documentation - Palliative Care Palliative Care/ Comfort Measures: Not Applicable - Core Measures Any of the following diagnoses?: none Exam - Constitutional Vitals: Temp Pulse Resp BP Pulse Ox 98.6 F 98 H 18 123/63 100 05/24/17 09:41 05/24/17 10:00 05/24/17 09:41 05/24/17 09:41 05/24/17 09:41 General appearance: Present: no acute distress, well-nourished - EENT Eyes: Present: PERRL ENT: hearing intact, clear oral mucosa - Neck Neck: Present: supple, normal ROM - Respiratory Respiratory effort: normal Respiratory: bilateral: CTA - Cardiovascular Heart Sounds: Present: S1 & S2. Absent: rub, click - Extremities Extremities: pulses symmetrical, No edema Peripheral Pulses: within normal limits - Abdominal General gastrointestinal: Present: soft, non-tender, non-distended, normal bowel sounds Female genitourinary: Present: normal - Integumentary Integumentary: Present: clear, warm, dry - Musculoskeletal Musculoskeletal: gait normal, strength equal bilaterally - Psychiatric Psychiatric: appropriate mood/affect, intact judgment & insight - Neurologic Neurologic: CNII-XII intact, moves all extremities Plan Activity: fall precautions Weight Bearing Status: Weight Bear as Tolerated Diet: low fat, low cholesterol, low salt Follow up with: PRIMARY CARE, [Referring] - 3-5 Days HEDY NOLASCO MD [Staff Physician] - 14 Days Forms: Discharge Signature Page Prescriptions: Famotidine [Pepcid] 20 mg PO BID #60 tablet Levofloxacin [Levaquin TAB] 500 mg PO Q24H #3 tablet Lisinopril [Zestril TAB] 20 mg PO QDAY #30 tablet
[2017-05-24] MEDS ORDERED: LEVAQUIN PO SCH (17:00)
== END 2017-05-24 13:15 | disposition home or self-care (01) | DRG 690 ==
LOC: ED 15:54 → 4A 23:19
PROVIDERS: ADMIT Internal Medicine; ATTEND Internal Medicine
DX: N39.0 Urinary tract infection, site not specified (principal); I31.3 Pericardial effusion (noninflammatory); K21.9 Gastro-esophageal reflux disease without esophagitis; I16.0 Hypertensive urgency; E11.9 Type 2 diabetes mellitus without complications; R56.9 Unspecified convulsions; Z88.0 Allergy status to penicillin; Z88.8 Allergy status to other drugs, medicaments and biological substances; I10 Essential (primary) hypertension; Z82.49 Family history of ischemic heart disease and other diseases of the circulatory system; Z79.82 Long term (current) use of aspirin; Z79.899 Other long term (current) drug therapy; J39.8 Other specified diseases of upper respiratory tract
CPT/HCPCS: 36415; 70450; 71045; 71275; 78452; 80048; 80053; 81001; 82550; 82553; 82962; 83036; 84484; 85025; 85610; 85670; 85730; 87086; 93005; 93010; 93017; 96374; 96375; A9502; J0360; J1956; J2765; J2785; J7050; Q9967

== ENCOUNTER 2017-06-12 12:01 | Emergency (ER) | payer MEDICARE ==
[2017-06-12] MEDS ORDERED: LIDOCAINE VISCOUS 2% PO ONE (16:14)
[2017-06-12] MEDS ORDERED: ALUM-MAG HYDROX-SIMETH 200-200-20MG/5ML PO ONE (16:14)
--- NOTE | 2017-06-12 16:20 | Emergency Department Report ---
Blank Doc - Documentation Documentation: 76-year-old female with a past medical history of diabetes (based on hemoglobin A1c last admission diet modification and follow up advised) Percocet, hypertension, subarachnoid hemorrhage, and seizures (not currently on medications) presents to the hospital complaints of chest pain and posterior thoracic back pain. Pain woke her up at 6:30 AM. Described as pressure and chest: Through to her back. Pain is intermittent without aggravating or alleviating factors. She denies shortness of breath, nausea, vomiting, or diaphoresis. She states she has similar pain when she was admitted here end of April. Previous admission reviewed. As per discharge summary Recent admission late April for epigastric pain and chest pain. Patient had a negative stress test. CT angiogram negative for PE but positive for lesion in the right paratracheal region (outpatient follow-up with ehr trainer Dr. Nolasco recommended). Patient was diagnosed with likely GERD and prescribed Pepcid. Patient has not taken the medication. She states she did not take it because her lisinopril dose was increased from 20 to 40 mg and she was scared and she was taking too much medication so did not initiate Pepcid as well. Patient was also treated for UTI and uncontrolled hypertension during her admission Patient does have reproducible bilateral posterior thoracic muscular pain and sternal pain to palpation. Positive epigastric tenderness Orders EKG, CBC, BMP, lft, lipase, cardiac enzymes Chest x-ray PA and lateral Maalox and viscous lidocaine
[2017-06-12 16:46] LABS: Basophils # (Auto) 0.1 K/mm3 (0.0-0.1); Basophils % (Auto) 1.3 % (0.0-1.8); Eosinophils # (Auto) 0.1 K/mm3 (0.0-0.4); Hematocrit 35.6 % (30.3-42.9); Hemoglobin 11.9 gm/dl (10.1-14.3); Lymphocytes # (Auto) 1.6 K/mm3 (1.2-5.4); Lymphocytes % (Auto) 37.9 % (13.4-35.0); Mean Corpuscular HGB Conc 34 % (30-34); Mean Corpuscular Hemoglobin 30 pg (28-32); Mean Corpuscular Volume 88 fl (79-97); Monocytes # (Auto) 0.4 K/mm3 (0.0-0.8); Monocytes % (Auto) 8.6 % (0.0-7.3); Platelet Count 297 K/mm3 (140-440); Red Blood Count 4.03 M/mm3 (3.65-5.03); Red Cell Distribution Width 15.1 % (13.2-15.2)
[2017-06-12 16:56] LABS: Creatine Kinase MB 1.8 ng/mL (0.0-4.0)
[2017-06-12 16:57] LABS: BUN/Creatinine Ratio 20; Blood Urea Nitrogen 14 mg/dL (7-17); Calcium 8.9 mg/dL (8.4-10.2); Hemolysis Index 11
[2017-06-12 17:01] LABS: Alanine Aminotransferase 9 units/L (7-56); Albumin 4.1 g/dL (3.9-5); Lipase 18 units/L (13-60)
[2017-06-12 17:02] LABS: Bilirubin,Direct < 0.2 mg/dL (0-0.2)
[2017-06-12] MEDS ORDERED: TYLENOL PO ONE (17:55)
--- NOTE | 2017-06-12 17:58 | Emergency Department Report ---
ED General Adult HPI - General Chief complaint: Back Pain/Injury Stated complaint: BACK PAIN Time Seen by Provider: 06/12/17 16:05 Source: patient Mode of arrival: Ambulatory Limitations: No Limitations - History of Present Illness Initial comments: diabetes (based on hemoglobin A1c last admission diet modification and follow up advised) Percocet, hypertension, subarachnoid hemorrhage, and seizures - Related Data Home Medications Medication Instructions Recorded Confirmed Last Taken Aspirin [Aspirin EC] 81 mg PO DAILY 05/22/17 05/22/17 Unknown Previous Rx's Medication Instructions Recorded Last Taken Type Famotidine [Pepcid] 20 mg PO BID #60 tablet 05/24/17 Unknown Rx Levofloxacin [Levaquin TAB] 500 mg PO Q24H #3 tablet 05/24/17 Unknown Rx Lisinopril [Zestril TAB] 20 mg PO QDAY #30 tablet 05/24/17 Unknown Rx Acetaminophen [Acetaminophen TAB] 500 mg PO Q6HR PRN #20 tablet 06/12/17 Unknown Rx Famotidine [Pepcid] 20 mg PO BID PRN #30 tablet 06/12/17 Unknown Rx Allergies Allergy/AdvReac Type Severity Reaction Status Date / Time celecoxib [From Celebrex] Allergy welts Verified 05/08/15 20:34 Penicillins Allergy welts Verified 05/08/15 20:34 ED Review of Systems ROS: Stated complaint: BACK PAIN Other details as noted in HPI ED Past Medical Hx - Past Medical History Hx Hypertension: Yes Hx Congestive Heart Failure: No Hx Liver Disease: No Hx Arthritis: Yes Hx Seizures: Yes Hx Kidney Stones: No Hx COPD: No - Surgical History Hx Pacemaker: No - Social History Smoking Status: Never Smoker Substance Use Type: Alcohol - Medications Home Medications: Home Medications Medication Instructions Recorded Confirmed Last Taken Type Aspirin [Aspirin EC] 81 mg PO DAILY 05/22/17 05/22/17 Unknown History Famotidine [Pepcid] 20 mg PO BID #60 tablet 05/24/17 Unknown Rx Levofloxacin [Levaquin TAB] 500 mg PO Q24H #3 tablet 05/24/17 Unknown Rx Lisinopril [Zestril TAB] 20 mg PO QDAY #30 tablet 05/24/17 Unknown Rx Acetaminophen [Acetaminophen TAB] 500 mg PO Q6HR PRN #20 tablet 06/12/17 Unknown Rx Famotidine [Pepcid] 20 mg PO BID PRN #30 tablet 06/12/17 Unknown Rx ED Physical Exam - General Limitations: No Limitations ED Course Vital Signs 06/12/17 12:30 Temperature 98.4 F Pulse Rate 65 Respiratory 17 Rate Blood Pressure 185/86 O2 Sat by Pulse 97 Oximetry ED Medical Decision Making - Lab Data Result diagrams: 06/12/17 16:16 06/12/17 16:16 Critical care attestation.: If time is entered above; I have spent that time in minutes in the direct care of this critically ill patient, excluding procedure time. ED Disposition Clinical Impression: Epigastric pain Thoracic back pain Qualifiers: Chronicity: acute Back pain laterality: unspecified Qualified Code(s): M54.6 - Pain in thoracic spine Disposition: DC-01 TO HOME OR SELFCARE Is pt being admited?: No Does the pt Need Aspirin: No Condition: Stable Instructions: Abdominal Pain (ED), Back Pain (ED) Prescriptions: Acetaminophen [Acetaminophen TAB] 500 mg PO Q6HR PRN #20 tablet PRN Reason: Pain Famotidine [Pepcid] 20 mg PO BID PRN #30 tablet PRN Reason: Indigestion Referrals: [facility] [Provider Group] - 3-5 Days Time of Disposition: 17:57
[2017-06-12 18:26] VITALS: BP 180/82
--- NOTE | 2017-06-12 19:14 | XRay Report ---
FINAL REPORT PROCEDURE: XR CHEST ROUTINE 2V TECHNIQUE: PA and lateral chest radiographs were obtained. CPT 43969 HISTORY: Chest pain COMPARISON: 05/22/2017 FINDINGS: Heart: Prominent cardiac silhouette. Mediastinum/Vessels: Tortuous or ectatic aorta. Lungs/Pleural space: No infiltrate, effusion, or pneumothorax. Bony thorax: No acute osseous abnormality. Other: IMPRESSION: No pulmonary infiltrates are identified.
== END 2017-06-12 18:26 | disposition home or self-care (01) ==
LOC: ED 12:01
DX: M54.6 Pain in thoracic spine (principal); R10.13 Epigastric pain
CPT/HCPCS: 36415; 71046; 80048; 80074; 82550; 82553; 83690; 84484; 85025; 93005; 93010